=== PATIENT | male | born 1980 | race Caucasian/White ===

== ENCOUNTER 2017-06-30 10:59 | Emergency (ER) | payer OTHER ==
[2017-06-30] MEDS ORDERED: Sodium Chloride 0.9% 1,000 ML IV ONE (12:39)
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
[2017-06-30 13:17] LABS: BASO % 0.5 % (0.0-2.0); HEMATOCRIT 46.3 % (35.0-51.0); LYMPH # 1.4 K/uL (1.0-4.3); LYMPH % 28.3 % (20.0-40.0); MEAN CELL VOLUME 87.6 fL (80.0-94.0); MEAN CORPUSCULAR HGB CONC 34.3 g/dL (33.0-37.0); MEAN PLATELET VOLUME 8.7 fL (7.2-11.7); MONO # 0.6 K/uL (0.0-0.8); MONO % 13.1 % (0.0-10.0); WHITE BLOOD COUNT 4.9 K/uL (4.8-10.8)
[2017-06-30] MEDS ORDERED: Sodium Chloride 0.9% 1,000 ML ONE (13:18)
[2017-06-30 13:20] LABS: CHLORIDE 95 mmol/L (98-107); SODIUM 134 mmol/L (132-148)
[2017-06-30 13:21] LABS: POTASSIUM 3.8 mmol/L (3.6-5.2)
[2017-06-30 13:23] LABS: ALB/GLOB RATIO 1.2 (1.0-2.1); ALKALINE PHOSPHATASE 46 U/L (38-126); ALT/SGPT 41 U/L (21-72); AST/SGOT 27 U/L (17-59); BILIRUBIN,TOTAL 1.4 mg/dL (0.2-1.3); BLOOD UREA NITROGEN 14 mg/dL (9-20); CARBON DIOXIDE 28 mmol/L (22-30); GFR AFRICAN-AMERICAN > 60; GLUCOSE,RANDOM 89 mg/dL (75-110); TOTAL PROTEIN 7.5 g/dL (6.3-8.3)
[2017-06-30 13:24] LABS: CALCIUM 8.9 mg/dl (8.6-10.4)
--- NOTE | 2017-06-30 13:52 | RAD ---
HISTORY: SOB COMPARISON: None available. TECHNIQUE: Chest PA and lateral FINDINGS: LUNGS: No focal consolidation. Please note that chest x-ray has limited sensitivity for the detection of pulmonary masses. PLEURA: No significant pleural effusion identified. No definite pneumothorax . CARDIOVASCULAR: The cardiomediastinal silhouette appears within normal limits of size. OSSEOUS STRUCTURES: No acute osseous abnormality identified. VISUALIZED UPPER ABDOMEN: Unremarkable. OTHER FINDINGS: None. IMPRESSION: No focal consolidation, significant pleural effusion, or definite pneumothorax identified.
[2017-06-30 13:59] LABS: RBC URINE < 1 /hpf (0-3); URINE BILIRUBIN NEGATIVE (NEGATIVE); URINE BLOOD NEGATIVE (NEGATIVE); URINE COLOR Yellow (YELLOW); URINE GLUCOSE (UA) NORMAL (Normal); URINE KETONE NEGATIVE (NEGATIVE); URINE LEUKOCYTE ESTERASE NEG Leu/uL (Negative); URINE PROTEIN NEGATIVE (NEGATIVE); URINE UROBILINOGEN NORMAL mg/dL (0.2-1.0); WBC URINE < 1 /hpf (0-5)
[2017-06-30] MEDS ORDERED: Iohexol 300 100 ML IJ ONE (14:26)
--- NOTE | 2017-06-30 15:35 | CT ---
PROCEDURE: CT NECK WITH CONTRAST HISTORY: facial swelling COMPARISON: None TECHNIQUE: CT of the neck with intravenous contrast. Coronal and sagittal reformats generated. Intravenous contrast dose: Omnipaque 300, 100 cc Radiation dose: DLP 381.64 mGy-cm This CT exam was performed using one or more of the following dose reduction techniques: Automated exposure control, adjustment of the mA and/or kV according to patient size, and/or use of iterative reconstruction technique. FINDINGS: NASOPHARYNX: Unremarkable. SUPRAHYOID NECK: Unremarkable oropharynx, oral cavity, parapharyngeal space and retropharyngeal space. INFRAHYOID NECK: Unremarkable larynx, hypopharynx, and supraglottic space. Vocal cords intact. MASS: None. GLANDS: The bilateral parotid and submandibular glands appear mildly edematous with edema also identified throughout the facial soft tissues anteriorly and laterally bilaterally, as well as someone in the deep and superficial neck soft tissues as well. Posterior triangles appear unaffected bilaterally. No abscess formation or other fluid collection. Pattern may reflect multifocal adenitis. No discrete salivary gland mass identified throughout the submandibular and parotid glands with very small sublingual glands poorly characterized. Normal size thyroid gland, without nodule. LYMPH NODES: Mildly enlarged bilateral jugular digastric lymph node lymph nodes identified up to 1.5 cm the right and 1.7 cm at the left common suprahyoid neck. CERVICAL SPINE: No fracture or focal lesion. VASCULAR STRUCTURES: Unremarkable. OTHER FINDINGS: None. IMPRESSION: Diffuse facial and neck soft tissue edema is appreciated sparing only the posterior triangles of the neck bilaterally, without abscess evident grossly. Edema is seen in the bilateral submandibular and parotid glands. Consider potential multifocal adenitis without definitive mass appreciable. Mild suprahyoid lymphadenopathy is noted in the neck. Is unclear whether this should be viral or bacterial origin though limited lymphadenopathy may indicate the former. Please see discussion above.
[2017-06-30 16:02] VITALS: BP 146/90; PULSE 77; RESP 18; TEMP 98.7
[2017-06-30 16:20] VITALS: O2SAT 96
== END 2017-06-30 17:39 | disposition home or self-care (01) ==
LOC: C.ER 10:59
DX: K11.21 Acute sialoadenitis (principal)
CPT/HCPCS: 70491; 71020; 80053; 81001; 83605; 85025; 86308; 87040; 96361; 96374; 96375; 99284; J1885; J2405; J7040; Q9967